=== PATIENT | female | born 1955 | race Caucasian/White ===

== ENCOUNTER → 2017-06-03 12:04 | Outpatient (CLI) | payer OTHER, SELFPAY ==
[2017-06-03 13:41] LABS: PTHIN 75.7 pg/mL (18.4-80.1)
[2017-06-07 15:52] LABS: Tacrolimus (FK506) 5.1 ng/mL (2.0-20.0)
== END ==
PROVIDERS: Family Provider Family Medicine; PCP Family Medicine; Visit Provider Internal Medicine Nephrology
DX: N18.4 Chronic kidney disease, stage 4 (severe) (principal); Z48.22 Encounter for aftercare following kidney transplant
CPT/HCPCS: 80197; 83970

== ENCOUNTER → 2017-07-12 13:54 | Outpatient (CLI) | payer OTHER, SELFPAY ==
[2017-07-15 09:25] LABS: Tacrolimus (FK506) 4.8 ng/mL (2.0-20.0)
== END ==
PROVIDERS: Visit Provider Internal Medicine Nephrology
DX: I10 Essential (primary) hypertension (principal); Q44.6 Cystic disease of liver; Z94.0 Kidney transplant status
CPT/HCPCS: 80197; 82105

== ENCOUNTER → 2017-09-28 12:42 | Outpatient (CLI) | payer OTHER, SELFPAY ==
[2017-10-14 14:24] LABS: Tacrolimus (FK506) 5.7 ng/mL (2.0-20.0)
== END ==
PROVIDERS: Family Provider Family Medicine; PCP Internal Medicine Nephrology; Visit Provider Internal Medicine Nephrology
DX: N18.3 Chronic kidney disease, stage 3 (moderate) (principal); Z94.0 Kidney transplant status; N39.0 Urinary tract infection, site not specified
CPT/HCPCS: 80197; 87086; 87088

== ENCOUNTER → 2017-10-01 13:03 | Outpatient (CLI) | payer OTHER, SELFPAY ==
--- NOTE | 2017-10-01 13:03 | DT_ITS ---
This patient was seen during an EMR downtime September 26, 2017 - October 03, 2017. This patient may have a combination of paper and electronic documentation or all paper documentation. All documentation is viewable within the e-chart portion of [facility] for each patient visit.
== END ==
PROVIDERS: Family Provider Family Medicine; PCP Internal Medicine Nephrology
DX: Z94.0 Kidney transplant status (principal); N18.3 Chronic kidney disease, stage 3 (moderate); N39.0 Urinary tract infection, site not specified
CPT/HCPCS: 80197

== ENCOUNTER → 2019-07-18 11:17 | Outpatient (CLI) | payer OTHER, SELFPAY ==
[2019-07-18 11:49] LABS: Protein, Urine (Random) 23.1 mg/dL (<11.9); Protein:Creat Ratio 116 mg/g CRE (0-200)
[2019-07-18 12:11] LABS: PTHIN 131.9 pg/mL (18.4-80.1)
== END ==
DX: N18.3 Chronic kidney disease, stage 3 (moderate) (principal)
CPT/HCPCS: 82570; 83970; 84156

== ENCOUNTER 2020-06-26 17:14 | Outpatient (RCR) | payer OTHER, SELFPAY ==
[2020-06-26] MEDS: COVID-19 VACC, MRNA(PFIZER)/PF 30 MCG/0.3 ML SYRINGE IM (12:10)
[2020-07-17] MEDS: COVID-19 VACC, MRNA(PFIZER)/PF 30 MCG/0.3 ML SYRINGE IM (11:54)
== END 2020-06-26 23:59 ==
LOC: IMMUN 17:14
PROVIDERS: PCP Family Medicine; Visit Provider Family Medicine
DX: Z23 Encounter for immunization (principal)
CPT/HCPCS: 0001A; 0002A